=== PATIENT | male | born 1995 | race Caucasian/White ===

== ENCOUNTER 2016-10-10 03:23 | Inpatient (IN) | payer MEDICAID, OTHER ==
--- NOTE | 2016-10-10 04:01 | ED ---
Pablo Mchugh Alfonso, scribed for Rakesh Guy MD on 10/10/16 at 0340 . Psychiatric Complaint - HPI Summary HPI Summary: This patient is a 21 year old male BIBA with police to [facility] for SI at 216 today. Per EMS report, he attempted to hang himself in police custody after an arrest. Patient arrives to the ED agitated. Symptoms aggravated by recent arrest and alleviated by nothing. Patient states I havent been myself for the past couple of months, and I have been feeling really sad. Patient arrives with c-spine immobilization collar in place. - History Of Current Complaint Hx Obtained From: Patient, EMS Onset/Duration: Sudden Onset, Lasting Minutes - 216 today, Still Present Timing: Constant Severity Initially: Moderate Severity Currently: Moderate Aggravating Factor(s): Other - Recent arrrest Alleviating Factor(s): Nothing Has Suicidal: Reports: Has Prior Attempt(s) - At 021 today he attempted to hang himself in police custody after an arrest - Allergies/Home Medications Allergies/Adverse Reactions: Allergies Allergy/AdvReac Type Severity Reaction Status Date / Time No Known Allergies Allergy Verified 10/10/16 03:40 PMH/Surg Hx/FS Hx/Imm Hx Endocrine/Hematology History: Denies: Hx Diabetes Cardiovascular History: Denies: Hx Congestive Heart Failure, Hx Hypertension GI History: Reports: Other GI Disorders - appy History: Denies: Hx Renal Disease - Surgical History Surgery Procedure, Year, and Place: NASAL SURGERY 2011 - polyp removal Hx Anesthesia Reactions: No Infectious Disease History: No Infectious Disease History: Denies: Traveled Outside the [place] in Last 30 Days - Family History Known Family History: Negative: Cardiac Disease - Social History Alcohol Use: Occasionally Substance Use Type: Reports: Marijuana Substance Use Comment - Amount & Last Used: last week Smoking Status (MU): Current Every Day Smoker Type: Cigarettes Amount Used/How Often: 3-7 CIG/DAY Have You Smoked in the Last Year: Yes Review of Systems Negative: Fever Neurological: Other - Positive SI at 0217 attempted to hang himself in police custody after an arrest. Positive: Other - Positive agitated All Other Systems Reviewed And Are Negative: Yes Physical Exam Triage Information Reviewed: Yes Vital Signs On Initial Exam: Initial Vitals Temp Pulse Resp BP Pulse Ox 98.8 F 93 20 131/65 100 10/10/16 03:24 10/10/16 03:24 10/10/16 03:24 10/10/16 03:24 10/10/16 03:24 Vital Signs Reviewed: Yes Appearance: Positive: Well-Appearing, No Pain Distress Skin: Positive: Warm, Other - no lesions or ligature markings seen Head/Face: Positive: Normal Head/Face Inspection Eyes: Positive: ROCIO ENT: Positive: Hearing grossly normal Neck: Positive: Supple, Nontender Respiratory/Lung Sounds: Positive: Clear to Auscultation, Breath Sounds Present Cardiovascular: Positive: RRR Abdomen Description: Positive: Nontender, Soft Bowel Sounds: Positive: Present Musculoskeletal: Positive: Strength/ROM Intact Neurological: Positive: Alert, Oriented to Person Place, Time Psychiatric: Positive: Affect/Mood Appropriate Diagnostics - Vital Signs Vital Signs Temp Pulse Resp BP Pulse Ox 10/10/16 03:25 98.8 F 93 20 131/65 100 10/10/16 03:24 98.8 F 93 20 131/65 100 - Laboratory Result Diagrams: 10/10/16 04:10 10/10/16 04:10 Lab Statement: Any lab studies that have been ordered have been reviewed, and results considered in the medical decision making process. Course/Dx - Differential Dx/Clinical Impression Provider Diagnosis: Suicide attempt by hanging - Physician Notifications Instructed by Provider To: Admit As Inpatient Discharge - Discharge Plan Condition: Fair Disposition: ADMITTED TO [facility] The documentation as recorded by the Pablo castillo Alfonso accurately reflects the service I personally performed and the decisions made by , Rakesh Guy MD.
[2016-10-10 04:32] LABS: Urine Bilirubin Negative (Negative); Urine Glucose Negative (Negative); Urine Nitrite Negative (Negative)
[2016-10-10 04:33] LABS: Comments Flag Yes; Hematocrit 44 % (42-52); Hemoglobin 15.1 g/dl (14.0-18.0); Mean Corpuscular HGB Conc 34 g/dl (31-36); Mean Corpuscular Hemoglobin 28 pg (27-31); Mean Corpuscular Volume 82 fL (80-94); Mean Platelet Volume 9 um3 (7.4-10.4); Red Blood Count 5.39 10^6/ul (4.0-5.4); Red Cell Distribution Width 14 % (10.5-15)
[2016-10-10 04:34] LABS: Add Diff/Slide Review? Slide Review Added
[2016-10-10 04:42] LABS: ALT 8 U/L (7-52); AST 12 U/L (13-39); Albumin 4.9 g/dL (3.2-5.2); Alkaline Phosphatase 77 U/L (34-104); Anion Gap 9 mmol/L (2-11); BUN/Creatinine Ratio 12.9 (8-20); Blood Urea Nitrogen 11 mg/dL (6-24); CO2 Carbon Dioxide 23 mmol/L (22-32); Calcium 9.7 mg/dL (8.6-10.3); Chloride 105 mmol/L (101-111); EGFR African American 146.3 (>60); EGFR Non-African American 113.8 (>60); Globulin 2.8 g/dL (2-4); Glucose 115 mg/dL (70-100); Potassium 3.9 mmol/L (3.5-5.0); Sodium 137 mmol/L (133-145); Total Protein 7.7 g/dL (6.4-8.9)
[2016-10-10 04:48] LABS: Benzodiazepine Urine Screen None Detected (None Detect)
[2016-10-10 04:58] LABS: Acetaminophen < 15 mcg/mL; Alcohol < 10 mg/dL (<10); Salicylate < 2.50 mg/dL (<30)
[2016-10-10 05:09] LABS: TSH (Thyroid Stimulating Horm) 2.25 mcIU/mL (0.34-5.60)
[2016-10-10] MEDS ORDERED: Nicotine GUM* 2 MG PO PRN (09:34)
[2016-10-10] MEDS ORDERED: Mouth Piece, Nicotine* 1 EACH CARTRIDGE INH SCH (09:34)
[2016-10-10] MEDS ORDERED: Nicotine Inhaler* 10 MG AMP INH PRN (09:34)
[2016-10-10] MEDS ORDERED: Al Hydrox/Mg Hydrox/Simet LIQ* 30 ML UDC PO PRN (09:34)
[2016-10-10] MEDS ORDERED: Acetaminophen TAB* 325 MG PO PRN (09:34)
[2016-10-10] MEDS: hydrOXYzine HCL TAB* 50 MG PO PRN ×2 (10:15→20:29)
[2016-10-10] MEDS: Vitamin THERAPEUTIC TAB PO SCH (10:15)
[2016-10-10] MEDS: Gabapentin CAP(*) 300 MG PO SCH ×2 (13:59→20:28)
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
[2016-10-11] MEDS: Gabapentin CAP(*) 300 MG PO SCH ×3 (08:12→20:35)
[2016-10-11] MEDS: Vitamin THERAPEUTIC TAB PO SCH (08:13)
[2016-10-11] MEDS: BuPROPion XL* 300 MG TAB.XL PO SCH (08:13)
[2016-10-11] MEDS: hydrOXYzine HCL TAB* 50 MG PO PRN (20:37)
[2016-10-12] MEDS: Gabapentin CAP(*) 300 MG PO SCH ×3 (08:55→21:02)
[2016-10-12] MEDS: BuPROPion XL* 300 MG TAB.XL PO SCH (08:55)
[2016-10-12] MEDS: Vitamin THERAPEUTIC TAB PO SCH (08:55)
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
--- NOTE | 2016-10-12 13:59 | PN ---
[facility]: Group Therapy Note - Service Type Service Type: 19774 Group Psychotherapy - Cognitive Behavioral Group Therapy ( CBT):Patient was attentive and participatory in CBT programming this morning, and remained in good behavioral control. Patient expressed positive insights regarding relevant treatment interventions and goals.
[2016-10-12] MEDS: buPROPion TAB* 100 MG PO SCH (16:11)
[2016-10-12] MEDS: hydrOXYzine HCL TAB* 50 MG PO PRN (21:01)
[2016-10-13] MEDS: Vitamin THERAPEUTIC TAB PO SCH (08:37)
[2016-10-13] MEDS: Gabapentin CAP(*) 300 MG PO SCH (08:37)
[2016-10-13] MEDS: buPROPion TAB* 100 MG PO SCH (08:38)
[2016-10-13 08:59] VITALS: BP 140/60
[2016-10-13] MEDS ORDERED: BuPROPion XL* 150 MG TAB.XL PO SCH (09:00)
--- NOTE | 2016-10-13 11:47 | DS ---
Subjective - Subjective Service Types: [id number] Hosp DC Day Mgmt simple under 30 min Subjective: Patient noted to have a more full affect on interview this morning. He reports he will go back to his aunt's house where he's lived versus a assisted. Patient reports he is ready for discharge. He reports benefit from groups and meds. He denies med s/e's. He reports appetite and sleep have increased over admission. He reports he is focused on sobriety. He was encouraged to be compliant with BID antidepressant dosing and to be compliant with outpt ADC at [facility]. Patient acknowledges understanding and is amenable. Patient asked to present to his local ED if SI recurs. He was amenable and acknowledged understanding of her family and community supports. He again denies SI/HI and AH/VH. Objective - Appearance Appearance: Thin Framed Dysmorphic Features: No Hygiene: Normal Grooming: Fairly Well Kept - Behavior Psychomotor Activities: Normal Exhibits Abnormal Movement: No - Attitude and Relatedness Attitude and Relatedness: Cooperative Eye Contact: Fair - Speech Quality: Unpressured Latencies: Normal Quantity: Appropriate - Mood Patient's Decription of Mood: "Okay" - Affect Observed Affect: Fair Affect Consistent with: Euthymia - Thought Process Patient's Thought Process: Coherent Thought Content: No Passive Wish, No Suicidal Planning, No Homicidal Ideation, No Paranoid Ideation - Sensorium Experiencing Hallucinations: No, Sensorium is Clear Type of Hallucinations: Visual: No, Auditory: No, Command: No - Level of Consciousness Level of Consciousness: Alert Orientation: Yes Intact, Yes Orientated to Time, Yes Orientated to Place, Yes Orientated to Person - Impulse Control Impulse Control: Intact - Insight and Judgement Insight and Judgement: Fair - Group Participation Particating in Group Activities: Yes - Medication Management Medication Management Adherence: Yes Treatment Course & Assessment Clinical Course & Impression: HOSPITAL COURSE: 21yo male with PPHx significant for unspecified depressive disorder, cannabis use disorder, cocaine use disorder and opioid use disorder presented reporting worsening depressive symptoms s/p suicide attempt by hanging after a recent arrest. Patient has significant relational, financial, occupational, legal, and social issues. Patient was abandoned by his father in childhood. Patient with significant hx of family GITA issues. His male role models in the family are mostly criminals, addicts, or in senior care. He is amenable to initiating antidepressant therapy and participating in [facility] ADC once released. He has denied SI/HI and AH/ VH since admission day 1. Patient is future oriented, realizing he wants to be a father present in his son 's life. He acknowledges understanding of the importance of sobriety and maintaining his MH for having success in life. Patient's immediate suicide risk profile has been significantly reduced. On day of discharge he is attending groups, reports noticeable benefit to energy and mood on Wellbutrin. Pateint is amenable to MH followup appts made. He is psychiatrically stable. PERTINENT LABS: Laboratory Tests 10/10/16 10/10/16 10/10/16 04:10 04:10 04:10 WBC 10.0 RBC 5.39 Hgb 15.1 Hct 44 MCV 82 MCH 28 MCHC 34 RDW 14 Plt Count 261 MPV 9 Neut % (Auto) 78.9 Lymph % (Auto) 15.5 L [place] % (Auto) 3.0 Eos % (Auto) 1.2 Baso % (Auto) 1.4 Absolute Neuts (auto) 7.9 H Absolute Lymphs (auto) 1.5 Absolute Monos (auto) 0.3 Absolute Eos (auto) 0.1 Absolute Basos (auto) 0.1 Absolute Nucleated RBC 0 Nucleated RBC % 0 Sodium 137 Potassium 3.9 Chloride 105 Carbon Dioxide 23 Anion Gap 9 BUN 11 Creatinine 0.85 Est GFR ( Amer) 146.3 Est GFR (Non-Af Amer) 113.8 BUN/Creatinine Ratio 12.9 Glucose 115 H Calcium 9.7 Total Bilirubin 0.70 AST 12 L ALT 8 Alkaline Phosphatase 77 Total Protein 7.7 Albumin 4.9 Globulin 2.8 Albumin/Globulin Ratio 1.8 TSH 2.25 Urine Color Straw Urine Appearance Clear Urine pH 6.0 Ur Specific [place] 1.008 L Urine Protein Negative Urine Ketones Trace H Urine Blood Negative Urine Nitrate Negative Urine Bilirubin Negative Urine Urobilinogen Negative Ur Leukocyte Esterase Negative Urine Glucose Negative Salicylates < 2.50 Urine Opiates Screen Acetaminophen < 15 Ur Barbiturates Screen Ur Phencyclidine Scrn Ur Amphetamines Screen U Benzodiazepines Scrn Urine Cocaine Screen U Cannabinoids Screen Serum Alcohol < 10 10/10/16 04:10 WBC RBC Hgb Hct MCV MCH MCHC RDW Plt Count MPV Neut % (Auto) Lymph % (Auto) [place] % (Auto) Eos % (Auto) Baso % (Auto) Absolute Neuts (auto) Absolute Lymphs (auto) Absolute Monos (auto) Absolute Eos (auto) Absolute Basos (auto) Absolute Nucleated RBC Nucleated RBC % Sodium Potassium Chloride Carbon Dioxide Anion Gap BUN Creatinine Est GFR ( Amer) Est GFR (Non-Af Amer) BUN/Creatinine Ratio Glucose Calcium Total Bilirubin AST ALT Alkaline Phosphatase Total Protein Albumin Globulin Albumin/Globulin Ratio TSH Urine Color Urine Appearance Urine pH Ur Specific [place] Urine Protein Urine Ketones Urine Blood Urine Nitrate Urine Bilirubin Urine Urobilinogen Ur Leukocyte Esterase Urine Glucose Salicylates Urine Opiates Screen None detected Acetaminophen Ur Barbiturates Screen None detected Ur Phencyclidine Scrn None detected Ur Amphetamines Screen None detected U Benzodiazepines Scrn None detected Urine Cocaine Screen None detected U Cannabinoids Screen Presumptive positive H Serum Alcohol Discharge Meds: Home Medications Medication Instructions Recorded Confirmed Type Gabapentin CAP(*) [Neurontin 300 300 mg PO TID #90 cap 10/13/16 Rx CAP(*)] buPROPion TAB* [Wellbutrin TAB*] 150 mg PO 0800,1600 #60 tab 10/13/16 Rx hydrOXYzine HCL TAB* [Atarax TAB 100 mg PO Q6H PRN #15 tab 10/13/16 Rx 50 MG *] Consultants: none Follow-Up: Appts for within the next 2 weeks scheduled by for PCP and [facility](psychiatry and counseling). Patient also scheduled for intake appt for ADC at [facility]. Clear for Discharge: Adequate Clinical Respons, Acceptable Safety Profile Inpatient DSM-IV Dx: 1. Unspecified depressive disorder. 2. Cannabis use disorder. 3. Cocaine use disorder. 4. Opioid use disorder Discharge Planning - Discharge Planning Discharge Plan: Outpatient Follow Up Outpatient Program: [facility] Recommendations for Continuing Care: Substance Abuse Counseling Medications: Current Medications Bupropion HCl (Wellbutrin Tab*) 150 mg PO 0800,1600 Gabapentin (Neurontin Cap(*)) 300 mg PO TID ALFRED Hydroxyzine HCl (Atarax Tab*) 100 mg PO Q6H PRN Discharge Planning: Prescriptions provided for discharge [x] Yes [] No Follow up care details as per social work arrangements. Patient response to discharge plan: [] eager for discharge [x] agreeable with discharge plan [] ambivalent about discharge [] disagrees with discharge today
--- NOTE | 2016-10-13 12:01 | PN ---
[facility]: Group Therapy Note - Service Type Service Type: 20266 Group Psychotherapy - Cognitive Behavioral Group Therapy ( CBT):Patient attended CBT programming this morning and presented with flat affect that did not vary with discussion. Although responsive to direct prompts to respond to questions, patient did not engage in spontaneous conversation.
== END 2016-10-13 13:20 | disposition home or self-care (01) | DRG 754 ==
LOC: ED 03:23 → BSU 06:30 → ED 07:50
PROVIDERS: ADMIT Psychiatry & Neurology Psychiatry; ATTEND Psychiatry & Neurology Psychiatry
DX: F32.9 Major depressive disorder, single episode, unspecified (principal); F11.10 Opioid abuse, uncomplicated; F12.10 Cannabis abuse, uncomplicated; F14.10 Cocaine abuse, uncomplicated; Z81.8 Family history of other mental and behavioral disorders; Z81.3 Family history of other psychoactive substance abuse and dependence
CPT/HCPCS: 36415; 80053; 80307; 80320; 80329; 81003; 84443; 85025; 90853; 99222; 99231; 99238; A9270-GY; G0480

== ENCOUNTER → 2017-04-29 07:20 | Emergency (ER) | payer MEDICAID, OTHER ==
[~2017-04-29 07:20] MED LIST: Ibuprofen TAB* 600 MG PO ONE; Ondansetron ODT TAB* 4 MG PO ONE
[2017-04-29 09:39] VITALS: BP 99/69
--- NOTE | 2017-04-29 12:16 | ED ---
Jarvis Mchugh Angela, scribed for Jeffrey Perez MD on 04/29/17 at 0729 . GI/ HPI - HPI Summary HPI Summary: This pt is a 22 y/o male presenting to [facility] c/o vomiting and diarrhea since 01: 00. Pt notes he began to have abd pain and felt nauseous. 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 Pt states that he stopped drinking and eating so that he wouldn't have more of these episodes. He reports approximately 10-15 episodes of diarrhea in total. Pt additionally notes body aches, "cold and hot chills". Denies cough, congestion, chest pain. NKDA - History of Current Complaint Chief Complaint: EDNauseaVomitDiarrh Time Seen by Provider: 04/29/17 07:26 Stated Complaint: DIARRHEA,VOMITING Hx Obtained From: Patient Onset/Duration: Started Hours Ago, Still Present Timing: Lasting Hours Current Severity: None Pain Intensity: 4 Associated Signs and Symptoms: Positive: Nausea, Vomiting, Diarrhea, Abdominal Pain. Negative: Cough, Chest Pain - Additional Pertinent History Primary Care Physician: CRISTAL - Allergy/Home Medications Allergies/Adverse Reactions: Allergies Allergy/AdvReac Type Severity Reaction Status Date / Time No Known Allergies Allergy Verified 04/29/17 07:24 PMH/Surg Hx/FS Hx/Imm Hx Endocrine/Hematology History: Denies: Hx Diabetes Cardiovascular History: Denies: Hx Congestive Heart Failure, Hx Hypertension GI History: Reports: Other GI Disorders - appendectomy in [id number] History: Denies: Hx Renal Disease Sensory History: Denies: Hx Contacts or Glasses, Hx Hearing Aid Opthamlomology History: Denies: Hx Contacts or Glasses Psychiatric History: Reports: Hx Inpatient Treatment, Hx of Violent Episodes Against Others Denies: Hx Eating Disorder - Surgical History Surgery Procedure, Year, and Place: NASAL SURGERY 2011 - polyp removal. reports appendectomy in either [id number] Hx Anesthesia Reactions: No Infectious Disease History: No Infectious Disease History: Denies: Traveled Outside the [place] in Last 30 Days - Family History Known Family History: Positive: Other - No hx of CA, DVT, PE Negative: Cardiac Disease Family History: FHx of depression. - Social History Alcohol Use: reports drinking less than once per month Substance Use Type: Reports: Marijuana Substance Use Comment - Amount & Last Used: last week Smoking Status (MU): Light Every Day Tobacco Smoker Type: Cigarettes Amount Used/How Often: 3-7 CIG/DAY Have You Smoked in the Last Year: Yes - last smoked yesterday Review of Systems Positive: Chills. Negative: Fever Negative: Other - congestion Negative: Chest Pain Negative: Cough Positive: Abdominal Pain, Vomiting, Diarrhea, Nausea All Other Systems Reviewed And Are Negative: Yes Physical Exam - Summary Physical Exam Summary: Appearance: The patient is well-nourished in no acute distress and in no acute pain. Skin: The skin is warm and dry and skin color reflects adequate perfusion. HEENT: The head is normocephalic and atraumatic. The pupils are equal and reactive. The conjunctivae are clear and without drainage. Nares are patent and without drainage. Mouth reveals moist mucous membranes and the throat is without erythema and exudate. The external ears are intact. The ear canals are patent and without drainage. The tympanic membranes are intact. Neck: the neck is supple with full range of motion and non-tender. There are no carotid bruits. There is no neck vein distension. Respiratory: Chest is non-tender. Lungs are clear to auscultation and breath sounds are symmetrical and equal. Cardiovascular: Heart is regular rate and rhythm. There is no murmur or rub auscultated. There is no peripheral edema and pulses are symmetrical and equal. Abdomen: The abdomen is soft and non-tender. There are normal bowel sounds heard in all four quadrants and there is no organomegaly palpated. Musculoskeletal: There is no back tenderness noted. Extremities are non-tender with full range of motion. There is good capillary refill. There is no peripheral edema or calf tenderness elicited. Neurological: Patient is alert and oriented to person, place and time. The patient has symmetrical motor strength in all four extremities. Cranial nerves are grossly intact. Deep tendon reflexes are symmetrical and equal in all four extremities. Psychiatric: The patient has an appropriate affect and does not exhibit any anxiety or depression. Triage Information Reviewed: Yes Vital Signs On Initial Exam: Initial Vitals Temp Pulse Resp BP Pulse Ox 98.5 F 96 19 117/74 99 04/29/17 07:22 04/29/17 07:22 04/29/17 07:22 04/29/17 07:22 04/29/17 07:22 Vital Signs Reviewed: Yes Diagnostics - Vital Signs Vital Signs Temp Pulse Resp BP Pulse Ox 04/29/17 07:22 98.5 F 96 19 117/74 99 - Laboratory Lab Statement: Any lab studies that have been ordered have been reviewed, and results considered in the medical decision making process. Re-Evaluation - Re-Evaluation First Eval Re-Evaluation Time: 09:39 Comment: Pt is currently sleeping. GIGU Course/Dx - Course Course Of Treatment: Mr. Sravanthi Verde presented with about 6 hours of AGE symptoms. He has had at least a dozen episodes of watery diarrhea and multiple episodes of emesis. He had no other C/O except generalized myalgias and had not had any diarrhea or vomiting for about an hour. He was given zofran and ibuprofen. He promptly fell asleep and had no further episodes. - Diagnoses Provider Diagnoses: Gastroenteritis Discharge - Discharge Plan Condition: Stable Disposition: HOME Prescriptions: Ondansetron ODT TAB* [Zofran Odt TAB*] 4 mg PO Q6H PRN #20 tab.odt PRN Reason: Nausea/Vomiting Patient Education Materials: Gastroenteritis (ED) Forms: *Work Release Referrals: Joe Omer DO [Primary Care Provider] - Additional Instructions: Please follow up with your primary care provider. RETURN TO THE ED FOR ANY WORSENING SYMPTOMS. The documentation as recorded by the Jarvis castillo Angela accurately reflects the service I personally performed and the decisions made by me, Jeffrey Perez MD.
== END | disposition home or self-care (01) ==
LOC: ED 07:20
DX: K52.9 Noninfective gastroenteritis and colitis, unspecified (principal); R11.2 Nausea with vomiting, unspecified; R19.7 Diarrhea, unspecified; R10.9 Unspecified abdominal pain; F17.210 Nicotine dependence, cigarettes, uncomplicated
CPT/HCPCS: 99282; A9270-GY